=== PATIENT | male | born 1965 | race Caucasian/White ===

== ENCOUNTER 2022-08-24 02:32 | Day surgery (SDC) | payer BC, SELFPAY ==
[2022-08-14 09:42] VITALS: BMI 33.6
[2022-08-24 09:59] VITALS: BP 157/95; PULSE 82; RESP 18; TEMP 36.4; O2SAT 100; BMI 33.3
[2022-08-24] MEDS: LACTATED RINGERS 1,000 ML 150 ML IV CONT (10:09)
--- NOTE | 2022-08-24 10:19 | P.PNAN_ITS ---
Anes - Initial Pre Proc Eval Procedure: Operation Date: 08/24/22 10:30 Proposed Procedures p Screening Colonoscopy - Radames Amaya MD Date/Time: 08/24/22 10:19 Surgeon: Radames Amaya MD Pre Op Diagnosis: Fam Hx of Colon Ca Patient Data Age: 56 Gender: M Height: 1.7 m Weight: 96.4 kg Last Vital Signs Temp 36.4 C L 08/24/22 09:59 Pulse 82 08/24/22 09:59 Resp 18 08/24/22 09:59 BP 157/95 H 08/24/22 09:59 Pulse Ox 100 08/24/22 09:59 O2 Del Method Room Air 08/24/22 09:59 Allergies Allergy/AdvReac Type Severity Reaction Status Date / Time No Known Allergies Allergy Unverified 08/14/22 09:42 Home Medications Medication Instructions Recorded Confirmed Type esomeprazole magnesium 20 mg 20 mg PO DAILY 08/14/22 08/14/22 History capsule,delayed release (Nexium) Patient hx anesthesia problems: none Family hx anesthesia problems: none Results Review: All pre-operative results and documents have been reviewed as part of the pre- operative evaluation. COUNT INCLUDES THE [facility] Past Medical History Medical History (Updated 08/24/22 @ 10:22 by Florencio Soto MD) HTN (hypertension) Obesity Snoring Surgical History Surgical History (Updated 08/24/22 @ 10:22 by Florencio Soto MD) H/O colonoscopy H/O right hemicolectomy Family History Family History Other Diabetes mellitus Family history of cardiovascular disease Family history of malignant neoplasm Social History Social History Smoking status: Never smoker Alcohol intake: current Drinks per week: 2 Alcohol use details: BEERS Substance use: never Substance use type: does not use Living arrangements: with family Spiritual care concerns: No Anes - Eval Final PreProcedure Day of Procedure 08/24/22 10:19 Patient weight: obese Heart: regular rate and rhythm Lungs: clear to auscultation Airway: Mallampati scale class II Neurological: alert and oriented Last oral intake: >/= 8 hours ASA classification: III Emergent: no Anesthetic plan: proceed Anesthesia type and monitoring: general GIVS and standard monitoring Results Review: All pre-operative results and documents have been reviewed as part of the pre- operative evaluation. Informed Consent: The patient's anesthetic plan and its attendant risks and benefits were discussed with the patient/family/POA. Questions were solicited and answers provided to the satisfaction of the patient/family/POA.
--- NOTE | 2022-08-24 10:29 | P.HP_ITS ---
History of Present Illness History of Present Illness Consent: Risks, benefits, and alternatives have been discussed and questions answered. Patient agrees to proceed with procedure. Chief complaint: Fam Hx of Colon Ca Narrative: Lee Morales is a 56 year old male Presents for colonoscopy. Patient's current weight appetite and bowel movements are normal. Patient denies abdominal pain. His family history is significant his sister had colon cancer. Patient has had colon polyps on several previous colonoscopies. 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 Most recent colonoscopy 2019 did show colon polyps as well. Review of Systems Review of Systems: Review of systems noncontributory. [facility] Past Medical History Medical History (Updated 08/24/22 @ 10:30 by Radames Amaya MD) HTN (hypertension) Obesity Snoring Surgical History Surgical History (Updated 08/24/22 @ 10:22 by Florencio Soto MD) H/O colonoscopy H/O right hemicolectomy Family History Family History Other Diabetes mellitus Family history of cardiovascular disease Family history of malignant neoplasm Social History Social History Smoking status: Never smoker Alcohol intake: current Drinks per week: 2 Alcohol use details: BEERS Substance use: never Substance use type: does not use Living arrangements: with family Spiritual care concerns: No Meds Home Medications and Allergies Home Medications Medication Instructions Recorded Confirmed Type esomeprazole magnesium 20 mg 20 mg PO DAILY 08/14/22 08/14/22 History capsule,delayed release (Nexium) Allergies Allergy/AdvReac Type Severity Reaction Status Date / Time No Known Allergies Allergy Unverified 08/14/22 09:42 Vital Signs Vital Signs - 24 hr 08/24/22 09:59 Temperature 97.5 F L Pulse Rate 82 Respiratory Rate 18 Blood Pressure 157/95 H Pulse Oximetry 100 Oxygen Delivery Room Air Exam Narrative: Physical exam reveals patient to be alert. Vital signs stable. HEENT exam is unremarkable. Patient is anicteric. Lungs are clear to auscultation and percussion. Heart is without murmur or extra sounds. Abdomen bowel sounds are present soft nontender with no organomegaly. Digital external rectal exam is normal. Assessment and Plan Assessment and plan (1) Family hx of colon cancer: Code(s): Z80.0 - Family history of malignant neoplasm of digestive organs Status: Acute Assessment and Plan: Patient's sister has had colon cancer. Plan for surveillance colonoscopy now and at intervals in the future. (2) History of colon polyps: Code(s): Z86.010 - Personal history of colonic polyps Status: Acute Assessment and Plan: Patient with history of colon resection for a large villous adenoma. Recurrent colon polyps noted on several occasions. Plan for colonoscopy at 3 year intervals.
[2022-08-24] MEDS: SIMETHICONE ORAL SUSPENSION 20 MG/0.3 ML 30 ML BOTTLE 0.6 ML IRRIGATION (11:11)
[2022-08-24 11:24] VITALS: BP 113/71; PULSE 70; RESP 20; O2SAT 96
[2022-08-24 11:34] VITALS: BP 120/76; PULSE 68; RESP 20; O2SAT 96
[2022-08-24 11:44] VITALS: BP 123/83; PULSE 60; RESP 20; O2SAT 98
== END 2022-08-24 11:50 | disposition home or self-care (01) ==
PROVIDERS: PCP Family Medicine; Visit Provider Internal Medicine Gastroenterology
PROC: 0DJD8ZZ Inspection of Lower Intestinal Tract, Via Natural or Artificial Opening Endoscopic (ICD-10-PCS; CPT 45378; principal; 2022-08-24 10:30)
DX: Z12.11 Encounter for screening for malignant neoplasm of colon (principal); K64.8 Other hemorrhoids; Z86.010 Personal history of colon polyps; Z80.0 Family history of malignant neoplasm of digestive organs; Z98.0 Intestinal bypass and anastomosis status; Z90.49 Acquired absence of other specified parts of digestive tract; I10 Essential (primary) hypertension; E66.9 Obesity, unspecified; Z68.33 Body mass index [BMI] 33.0-33.9, adult
CPT/HCPCS: 45378; J2704; J7120

== ENCOUNTER → 2022-10-15 14:49 | Outpatient (CLI) | payer BC, SELFPAY ==
--- NOTE | ~2022-10-15 | XR_ITS ---
XR lumbar spine 2-3V 10/15/2022 15:25 Indication: Low back pain. Sciatica. Procedure: 3 views lumbar spine Comparison: No prior studies for comparison. Findings: Vertebral body heights are maintained. No fracture, subluxation or dislocation. There is di sc narrowing at L5-S1. No evidence for spondylolisthesis. Pedicles are intact. Sacral foramen are sym metric. Impression: 1: Mild lumbar spondylosis. Reviewed, dictated and finalized at location B. Impression: 1: Mild lumbar spondylosis.
== END ==
PROVIDERS: PCP Family Medicine; Visit Provider Family Medicine
DX: M54.31 Sciatica, right side (principal); M47.896 Other spondylosis, lumbar region
CPT/HCPCS: 72100